=== PATIENT | male | born 1955 | race Caucasian/White ===

== ENCOUNTER 2016-12-30 11:56 | Inpatient (IN) | payer MEDICAID ==
[~2016-12-30] VITALS: Ht 170.2 cm; Wt 101.6 kg
--- NOTE | 2016-12-30 07:10 | NUR ---
EMANUEL FROM ULTRASOUND DEPARTMENT CAME TO DO ULTRASOUND OF GALLBLADDER TO PT.
[2016-12-30 12:16] VITALS: BP 125/66
[2016-12-30] MEDS ORDERED: MAG SULF 2000 MG/WATER PREMIX 50 ML IV ONE (12:20)
[2016-12-30] MEDS ORDERED: IPRATROPIUM 0.02% 0.5 MG/2.5 ML NEBU INH ONE (12:20)
[2016-12-30] MEDS ORDERED: ALBUTEROL 0.083% 2.5 MG/3 ML NEBU INH ONE (12:20)
--- NOTE | 2016-12-30 12:25 | NUR ---
Patient ambulated to OF with family. Dr. England evaluating patient.
[2016-12-30] MEDS ORDERED: AMLO2.5T PO (12:26)
[2016-12-30] MEDS ORDERED: ALBU0.0912 INH (12:26)
[2016-12-30] MEDS ORDERED: ASPI81CT27 PO (12:26)
[2016-12-30] MEDS ORDERED: FLUO10CA21 PO (12:26)
[2016-12-30] MEDS ORDERED: WARF5PDS PO (12:26)
[2016-12-30] MEDS ORDERED: ATOR40TA PO (12:26)
[2016-12-30] MEDS ORDERED: LISI20TA21 PO (12:26)
[2016-12-30] MEDS ORDERED: METO50TE PO (12:26)
[2016-12-30] MEDS ORDERED: MEDR150S20 INH (12:26)
[2016-12-30] MEDS ORDERED: METF500T64 PO (12:26)
--- NOTE | 2016-12-30 12:28 | NUR ---
ABG obtained by respiratory therapist while in OF.
[2016-12-30 12:34] LABS: BASOPHILS % (AUTO) 0.3 % (0.0-2.0); EOSINOPHILS # (AUTO) 0.2 K/uL (0-0.4); EOSINOPHILS % (AUTO) 1.7 % (0.0-4.0); HEMATOCRIT 48.1 % (36-52); HEMOGLOBIN 15.4 g/dL (12.0-18.0); LYMPHOCYTES # (AUTO) 0.7 K/uL (2.0-11.5); LYMPHOCYTES % (AUTO) 5.1 % (20.5-51.1); MEAN CORPUSCULAR HEMOGLOBIN 31 pg (27-31); MEAN CORPUSCULAR HGB CONC 32 g/dL (33-37); MEAN CORPUSCULAR VOLUME 96 fL (80-94); MONOCYTES # (AUTO) 0.9 K/uL (0.8-1.0); MONOCYTES % (AUTO) 6.4 % (1.7-9.3); NEUTROPHILS # (AUTO) 11.9 K/uL (1.8-7.7); NEUTROPHILS % (AUTO) 86.5 % (42.2-75.2); PLATELET COUNT (AUTO) 176 K/uL (140-450); RED BLOOD CELL COUNT(AUTO) 4.99 MIL/uL (4.20-6.10); RED CELL DISTRIBUTION WIDTH 14.5 % (11.6-13.7)
--- NOTE | 2016-12-30 12:40 | NUR ---
61M BIB FAMILY C/O NON-PRODUCTIVE COUGH W/ SHORTNESS OF BREATH X 2 DAYS; PT NOTED W/ TACHYPNEA, BL INSPIRATORY/EXPIRATORY WHEEZES & SHALLOW BREATHING AT THIS TIME; PT REFERRED TO ER FROM URGENT CARE FOR EVALUATION OF COUGH; PT STATES HE WAS DX W/PNEUMONIA AT URGENT CARE. HX COPD, DM, HTN, HYPERLIPIDEMIA, S/P CORONARY BYPASS 2005; PT AA&OX4, PERRLA, SKIN IS WARM/DRY/INTACT AT THIS TIME; PT STATES NO PAIN, N/V/D AT THIS TIME; PT PLACED ON MONITOR, RESTING IN BED W/ HOB ELEVATED AND IN LOWEST POSITION; POSITIONED FOR COMFORT; ER MD MADE AWARE OF STATUS. WILL CONTINUE TO MONITOR.
[2016-12-30 12:43] LABS: ANION GAP 14.5 (8-16); CALCIUM 9.3 mg/dL (8.5-10.1); CARBON DIOXIDE 27.8 mmol/L (21-32); CREATININE 1.3 mg/dL (0.6-1.3); POTASSIUM 4.3 mmol/L (3.5-5.1)
[2016-12-30 12:45] LABS: WHITE BLOOD COUNT (AUTO) 13.7 K/uL (4.8-10.8)
[2016-12-30 12:45] LABS: BLOOD GAS BASE EXCESS 1.1 mmol/L (-2.0-2.0); BLOOD GAS HCO3 24.3 mmol/L; BLOOD GAS PCO2 34.7 mmHg (20-50); BLOOD GAS PH 7.463 (7.35-7.45); BLOOD GAS PO2 45.7 mmHg
[2016-12-30 12:46] LABS: INR 2.3 (0.8-1.2); PROTHROMBIN TIME 23.3 secs (10.8-13.4)
[2016-12-30 12:46] LABS: BLOOD GAS O2 SAT% 82.7 % (92.0-98.5)
--- NOTE | 2016-12-30 12:47 | NUR ---
ABG RESULTS GIVEN TO .
[2016-12-30 12:49] LABS: ALBUMIN 3.9 g/dL (3.4-5.0); TOTAL BILIRUBIN 1.9 mg/dL (0.0-1.0); TOTAL PROTEIN, SERUM 8.4 g/dL (6.4-8.2)
--- NOTE | 2016-12-30 12:52 | NUR ---
RT AT BEDSIDE.
[2016-12-30] MEDS ORDERED: IBUPROFEN 600 MG TAB ONE (13:03)
--- NOTE | 2016-12-30 13:10 | NUR ---
XRAY AT BEDSIDE.
--- NOTE | 2016-12-30 14:07 | NUR ---
SPOKE W/ SURAJ JACQUES TO GIVE REPORT; STATES IN A PT'S ROOM; WILL CALL BACK IN 5-10 MINUTES.
[2016-12-30] MEDS ORDERED: ALBUTEROL SULFATE/IPRATROPIU 3 ML SOL IH PRN (14:10)
[2016-12-30] MEDS ORDERED: HYDROcodone/APAP 5/325 MG 1 TAB TAB PO PRN (14:10)
[2016-12-30] MEDS ORDERED: ONDANSETRON 4 MG/2 ML VIAL IVP PRN (14:10)
--- NOTE | 2016-12-30 14:23 | NUR ---
REPORT GIVEN TO SAWYER RUELAS.
--- NOTE | 2016-12-30 14:23 | NUR ---
RECEIVED REPORT FROM BOX TENDERSAWYER MAJOR.
--- NOTE | 2016-12-30 14:35 | NUR ---
Patient will be admitted to care of . Admited to TELEMETRY. Will go to room 110A. Belongings list completed. Report to SAWYER RUELAS.
--- NOTE | 2016-12-30 14:35 | NUR ---
Note criss in EDM - 12/30/16 at 1447 by LAMIN APatient will be admitted to care of . Admited to TELEMETRY. Will go to room 110A. Belongings list completed. Report to SAWYER RUELAS.
[2016-12-30 14:45] VITALS: BP 90/63
--- NOTE | 2016-12-30 14:45 | NUR ---
RECEIVED PT FROM ER. AWAKE, ALERT ORIENTEDX4. PT ON 02 AT 2LPM. DENIES ANY PAIN OR DISCOMFORT AT HIS TIME. POSITIVE BOWEL SOUNDS NOTED ON FOUR QUADR[address] CT WITH DAUGHTER IZZY. PT AMBULATORY. DENIES ANY PROBLEM WITH BLADDER OR BOWEL ELIMINATION AT THIS TIME. POSITIONED TO BED PER PT COMFORT. SAFETY PRECAUTION IN PLACE. CALL LIGHT WITHIN REACH. VITAL SIGNS. TAKEN AND RECORDED. PT ON STABLE CONDITION. SO SIGNS AND SYMPTOMS OF ACUTE DISTRESS NOTED AT THIS TIME.
--- NOTE | 2016-12-30 15:00 | NUR ---
EMANUEL FROM ULTRASOUND DEPARTMENT CALLED FOR THE GALL BLADDER ULTRASOUND ORDER AND KEPT PT ON NPO FOR AT LEAST 6 HRS. DAUGHTER IZZY VERBALIZED FATHER HAD LAST ATE BEFORE 0800. HELD DUE MEDS FOR NOW AWAITING EMANUEL FOR THE PROCEDURE.
[2016-12-30] MEDS: ALBUTEROL SULFATE/IPRATROPIU 3 ML SOL IH SCH ×3 (15:04→23:35)
--- NOTE | 2016-12-30 15:06 | NUR ---
PT ON 2 L NC SPO2 94%. HHN TX GIVEN. NO SOB OR DISTRESS NOTED. WILL CONTINUE TO MONITOR.
--- NOTE | 2016-12-30 15:10 | NUR ---
DR. GRAY CAME TO SEE PT.
[2016-12-30] MEDS ORDERED: methylPREDNISolone SS 125 MG/2 ML VIAL IVP SCH (15:45)
[2016-12-30 16:00] VITALS: BP 100/61
[2016-12-30] MEDS: BLOOD GLUCOSE MONITORING 1 DEV DEV FS SCH ×2 (16:35→20:55)
[2016-12-30] MEDS: PIPER/TAZO 3.375GM/D5W PREMIX 50 ML IV SCH ×2 (16:40→20:55)
[2016-12-30] MEDS ORDERED: WARFARIN 2.5 MG TAB PO SCH (17:00)
[2016-12-30 18:19] LABS: APPEARANCE,URINE CLEAR (CLEAR); BILIRUBIN,URINE NEGATIVE (NEGATIVE); BLOOD, URINE NEGATIVE (NEGATIVE); COLOR,URINE YELLOW (YELLOW); LEUKOCYTE ESTERASE ,URINE NEGATIVE (NEGATIVE); NITRITE, URINE NEGATIVE (NEGATIVE); PROTEIN,URINE 1+ (NEGATIVE); UGLUCOSE NEGATIVE (NEGATIVE); UROBILINOGEN,URINE 0.2 EU/dL (0.2 - 1)
[2016-12-30 18:27] LABS: AMPHETAMINE, URINE NEG. ng/ml (NEG <=1000); BARBITURATE, URINE NEG. ng/ml (NEG <=200); BENZODIAZEPINE, URINE NEG. ng/mL (NEG <=200); CANNABINOID, URINE NEG. ng/mL (NEG <=50); COCAINE, URINE NEG. ng/mL (NEG <=300); OPIATE, URINE NEG. ng/mL (NEG <=2000); PHENCYCLIDINE SCREEN,URINE NEG. ng/mL (NEG <=25)
[2016-12-30 18:30] LABS: BACTERIA,URINE RARE /HPF (None Seen); MUCUS,URINE 3+ /LPF (None Seen); RBC,URINE 0-3 /HPF (0-5); SQUAMOUS EPITHELIAL CELL,UR 0-3 /LPF (0-3 (FEW)); URINE AMORPHOUS URATE 1+ /HPF (None Seen); WBC,URINE 0-3 /HPF (0-5)
--- NOTE | 2016-12-30 19:20 | NUR ---
EMANUEL STILL WITH PT FOR ULTRASOUND. DUE COUMADIN AT 1700 AND INSULIN COVERAGE NOT YET GIVEN DUE TO EMANUEL NOT YET DONE WITH ULTRASOUND. DINNER TRAY AT BEDSIDE.
--- NOTE | 2016-12-30 19:30 | NUR ---
RECEIVED REPORT FROM SURAJ JACQUES AT BEDSIDE. PT IS ALERT, AWAKE ORIENTED X4. INITIAL ASSESSMENT DONE. NO S/S OF RESPIRATORY DISTRESS OR SOB NOTED. NO C/O PAIN OR ANY DISCOMFORT AT THIS TIME. PLAN OF CARE REVIEWED TO PT AND FAMILY AT BEDSIDE AND VERBALIZED UNDERSTANDING. CALL LIGHT WITHIN REACH. WILL CONTINUE TO MONITOR.
[2016-12-30] MEDS: INSULIN LISPRO SLIDING SCALE 100 UNITS/ML VIAL SUBQ PRN ×2 (19:36→20:56)
--- NOTE | 2016-12-30 19:37 | NUR ---
ULTRASOUND STAFF FINISHED WITH ULTRASOUND FOR PT. DUE COUMADIN AND COVERAGE HUMOLOG WAS GIVEN TO PT. PT EATING NOW HIS DINNER. TOLERATED WELL. PT KEPT CLEAN, DRY AND COMFORTABLE, NEEDS ATTENDED. ENDORSED TO SINGLE SPINDLE SCREW MACHINE OPERATOR ON STABLE CONDITION FOR CONTINUITY OF CARE. NO SOB. DENIES ANY PAIN OR DISCOMFORT AT THIS TIME.
[2016-12-30 20:00] VITALS: BP 97/52
[2016-12-30] MEDS ORDERED: BECLOMETHASONE DIPROPIONATE INH SCH (21:00)
[2016-12-30] MEDS ORDERED: PIPERACILLIN/TAZOBACTAM 3.375 GM in DEXTROSE 5% 50 ML IV SCH (21:00)
--- NOTE | 2016-12-30 22:20 | NUR ---
CALLED DAVID HERNANDEZ AND NOTIFIED CRITICAL LAB RESULT TROPONIN = 0.159 AND NEW ORDERS WERE GIVEN (PLS. SEE CPOE). NEW ORDERS NOTED AND CARRIED OUT. SHE'S ALLOWING ME TO ENTER THE ORDER TO THE COMPUTER. WILL CONTINUE TO MONITOR.
[2016-12-31] VITALS: BP 101/54
--- NOTE | 2016-12-31 00:30 | NUR ---
PT IS SLEEPING RIGHT NOW BUT EASILY AROUSABLE. NO S/S OF ANY DISCOMFORT AT THIS TIME. ALL NEEDS ARE ATTENDED. CALL LIGHT WITHIN REACH. WILL CONTINUE TO MONITOR.
[2016-12-31] MEDS: methylPREDNISolone SS 125 MG/2 ML VIAL IVP SCH ×3 (00:35→16:25)
[2016-12-31] MEDS: ALBUTEROL SULFATE/IPRATROPIU 3 ML SOL IH SCH ×6 (03:30→23:44)
[2016-12-31 04:00] VITALS: BP 110/72
[2016-12-31] MEDS: PIPER/TAZO 3.375GM/D5W PREMIX 50 ML IV SCH ×3 (04:38→21:53)
[2016-12-31 06:07] LABS: HEMATOCRIT 46.3 % (36-52); HEMOGLOBIN 14.9 g/dL (12.0-18.0); MEAN CORPUSCULAR HEMOGLOBIN 31 pg (27-31); MEAN CORPUSCULAR HGB CONC 32 g/dL (33-37); MEAN CORPUSCULAR VOLUME 96 fL (80-94); PLATELET COUNT (AUTO) 154 K/uL (140-450); RED BLOOD CELL COUNT(AUTO) 4.84 MIL/uL (4.20-6.10); RED CELL DISTRIBUTION WIDTH 14.6 % (11.6-13.7); WHITE BLOOD COUNT (AUTO) 16.1 K/uL (4.8-10.8)
[2016-12-31 06:32] LABS: PROTHROMBIN TIME 20.1 secs (10.8-13.4)
[2016-12-31 06:33] LABS: ANION GAP 14.1 (8-16); CALCIUM 9.1 mg/dL (8.5-10.1); CREATININE 1.6 mg/dL (0.6-1.3); POTASSIUM 4.1 mmol/L (3.5-5.1)
[2016-12-31] MEDS: BLOOD GLUCOSE MONITORING 1 DEV DEV FS SCH ×4 (06:37→21:00)
[2016-12-31 06:46] LABS: MAGNESIUM 2.8 mg/dL (1.8-2.4); PHOSPHORUS 3.8 mg/dL (2.5-4.9)
[2016-12-31] MEDS: INSULIN LISPRO SLIDING SCALE 100 UNITS/ML VIAL SUBQ PRN ×4 (06:51→22:01)
[2016-12-31 07:05] LABS: BAND % (MANUAL) 12 % (0-8); LYMPHOCYTES % (MANUAL) 4 % (20-46); MONOCYTES % (MANUAL) 3 % (5-12); NEUTROPHILS % (MANUAL) 81 (43-65)
--- NOTE | 2016-12-31 07:17 | NUR ---
AWAKE AND ALERT RESPONSIVE TO PAPER BAG INSPECTOR VERBAL COMMANDS POST HHN THERAPY ADDED HUMIDIFIER FOR NASAL DRYNESS
--- NOTE | 2016-12-31 07:20 | NUR ---
PT HAS NO S/S OF ANY DISCOMFORT. PLAN OF CARE ENDORSE TO SURAJ JACQUES AT BEDSIDE FOR CONTINUITY OF CARE.
--- NOTE | 2016-12-31 07:30 | NUR ---
RECEIVED PT IN BED AWAKE, ALERT ORIENTEDX4. WATCHING TV. SEATED UPRIGHT IN BED. ON 02 AT 2LPM. NO SOB, DENIES ANY PAIN OR DISCOMFORT AT THIS TIME. PT AMBULATORY. AMBULATING TO THE BATHROOM WITH STEADY GAIT. POSITIVE BOWEL SOUNDS NOTED ON FOUR QUADRANTS. SAFETY PRECAUTION IN PLACE. CALL LIGHT WITHIN REACH.
[2016-12-31 08:00] VITALS: BP 87/57
[2016-12-31] MEDS: METOPROLOL SUCCINATE 50 MG TABER PO SCH (08:32)
[2016-12-31] MEDS: LISINOPRIL 20 MG TAB PO SCH (08:32)
[2016-12-31] MEDS: amLODIPine 5 MG TAB PO SCH (08:32)
[2016-12-31] MEDS: ATORVASTATIN 20 MG TAB PO SCH (08:34)
[2016-12-31] MEDS: ECOTRIN 81 MG TABEC PO SCH (08:35)
[2016-12-31] MEDS ORDERED: CLINICAL MONITORING MC PRN (08:35)
[2016-12-31] MEDS: FLUoxetine 10 MG CAP PO SCH (08:35)
[2016-12-31] MEDS ORDERED: WARFARIN SODIUM 1 MG PO SCH (09:00)
[2016-12-31] MEDS ORDERED: metFORMIN 500 MG TAB PO SCH (09:00)
[2016-12-31] MEDS ORDERED: ASPIRIN 81 MG TAB.CHEW PO SCH (09:00)
[2016-12-31] MEDS: NACL 0.9% 1,000 ML IV SCH (11:02)
[2016-12-31 12:00] VITALS: BP 89/58
[2016-12-31] MEDS ORDERED: PIPER/TAZO 2.25GM/D5W PREMIX 50 ML IV SCH (12:00)
--- NOTE | 2016-12-31 14:20 | NUR ---
@1400 HRS, JOSE VELAZQUEZ FROM [facility] CALLED REGARDING PT THE HE FALLS ON SEPSIS CRITERIA AND TO TELL THR DOCTOR JOSE TO GET ORDERS FOR INITIAL LACTIC ACID LEVEL AND TO GIVE NS BOLUS OF 3000 MLS IN THE NEXT [address]. [address] PHIPPS REGARDING THE CALL, REVIEWED THE CHART AND PT IS ON SOLUMEDROL AND AFEBRILE. DR. PHIPPS STATED PT IS NOT SEPTIC AND SHE WILL DOCUMENT IT ON PT'S CHART. FAMILY SPECIALIST JASON MADE AWARE.
--- NOTE | 2016-12-31 15:02 | NUR ---
PT AMBULATED GOING TO THE BATHROOM INDEPENDENTLY. NO SIGNS OF WEAKNESS NOTED. NO SOB NOTED. DENIES ANY PAIN OR DISCOMFORT AT THIS TIME.
[2016-12-31 16:00] VITALS: BP 107/46
[2016-12-31] MEDS: metFORMIN 500 MG TAB PO SCH (16:25)
[2016-12-31] MEDS ORDERED: WARFARIN 5 MG TAB PO SCH (17:00)
--- NOTE | 2016-12-31 19:31 | NUR ---
PT KEPT, CLEAN, DRY AND COMFORTABLE, NEEDS ATTENDED. NO SOB NOTED, ON 02 AT 2LPM VIA NC. DENIES ANY PAIN OR DISCOMFORT AT THIS TIME. ENDORSED TO NEXT SHIFT FOR CONTINUITY OF CARE. PT ON STABLE CONDITION.
[2016-12-31 20:00] VITALS: BP 108/65
--- NOTE | 2016-12-31 20:00 | NUR ---
PT AWAKE ALERT AND ORIENTED, JUST HAVING HIS HHN TREATMENT, NO DISTRESS NOTED.
--- NOTE | 2016-12-31 22:00 | NUR ---
PT RESTING, NO COMPLAINTS
[2017-01-01] VITALS: BP 131/72
--- NOTE | 2017-01-01 | NUR ---
RESTING NO SIGNS OF DISTRESS.
--- NOTE | 2017-01-01 | NUR ---
AWAKE V/S DONE,NO DISTRESS NO COMPLAINTS. INSTRUCTED TO CALL IF NEEDED HELP.
[2017-01-01] MEDS: methylPREDNISolone SS 40 MG/ML VIAL IVP SCH ×3 (00:07→15:39)
[2017-01-01] MEDS: ALBUTEROL SULFATE/IPRATROPIU 3 ML SOL IH SCH ×6 (03:18→23:30)
[2017-01-01 04:00] VITALS: BP 116/60
[2017-01-01] MEDS: NACL 0.9% 1,000 ML IV SCH ×2 (04:46→17:43)
[2017-01-01] MEDS: PIPER/TAZO 3.375GM/D5W PREMIX 50 ML IV SCH ×3 (04:47→20:45)
[2017-01-01 05:53] LABS: HEMATOCRIT 46.2 % (36-52); HEMOGLOBIN 14.6 g/dL (12.0-18.0); MEAN CORPUSCULAR HEMOGLOBIN 30 pg (27-31); MEAN CORPUSCULAR HGB CONC 32 g/dL (33-37); MEAN CORPUSCULAR VOLUME 96 fL (80-94); PLATELET COUNT (AUTO) 182 K/uL (140-450); RED BLOOD CELL COUNT(AUTO) 4.81 MIL/uL (4.20-6.10); RED CELL DISTRIBUTION WIDTH 14.7 % (11.6-13.7); WHITE BLOOD COUNT (AUTO) 20.4 K/uL (4.8-10.8)
[2017-01-01] MEDS: BLOOD GLUCOSE MONITORING 1 DEV DEV FS SCH ×4 (06:16→20:45)
[2017-01-01] MEDS: INSULIN LISPRO SLIDING SCALE 100 UNITS/ML VIAL SUBQ PRN ×4 (06:21→20:42)
--- NOTE | 2017-01-01 06:30 | NUR ---
BS 274 INSULIN GIVEN.
[2017-01-01 06:36] LABS: ANION GAP 15.8 (8-16); CARBON DIOXIDE 25.1 mmol/L (21-32); CREATININE 1.5 mg/dL (0.6-1.3); POTASSIUM 3.9 mmol/L (3.5-5.1)
[2017-01-01 06:48] LABS: INR 4.4 (0.8-1.2); PROTHROMBIN TIME 44.2 secs (10.8-13.4)
[2017-01-01 06:51] LABS: MAGNESIUM 2.5 mg/dL (1.8-2.4); PHOSPHORUS 3.9 mg/dL (2.5-4.9)
[2017-01-01 07:06] LABS: BAND % (MANUAL) 13 % (0-8); LYMPHOCYTES % (MANUAL) 2 % (20-46); MONOCYTES % (MANUAL) 5 % (5-12); NEUTROPHILS % (MANUAL) 80 (43-65)
[2017-01-01 07:15] LABS: BLOOD GAS PH 7.404 (7.35-7.45); BLOOD GAS PO2 63.7 mmHg
--- NOTE | 2017-01-01 07:15 | NUR ---
GIVE REPORT TO AM NURSE.
[2017-01-01 07:16] LABS: BLOOD GAS BASE EXCESS -0.2 mmol/L (-2.0-2.0); BLOOD GAS HCO3 24.4 mmol/L; BLOOD GAS O2 SAT% 91.3 % (92.0-98.5)
--- NOTE | 2017-01-01 07:22 | NUR ---
REPORT RECIEVED FROM VALANCE CUTTER, PT AAOX4, RESP EVEN UNLABORED ON 3L NC IN NAD, IVF INFUSING WELL AT 50ML/HR, SITE CLEAR, PLAN OF CARE DISCUSSED, PT DENIES PAIN OR DISCOMFORT, DENIES ANY IMMEDIATE NEEDS, BED LOCKED IN LOW POSITION, SIDE RAILS UP, CALL MCGHEE WTIHIN REACH, WILL CONTINUE TO MONITOR.
--- NOTE | 2017-01-01 07:30 | NUR ---
SUPPLEMENTAL OXYGEN AT 3 LPM VIA NC MIRI/RN IN ROOM AWARE
[2017-01-01 07:59] VITALS: BP 121/63
[2017-01-01] MEDS: LISINOPRIL 20 MG TAB PO SCH (08:10)
[2017-01-01] MEDS: ECOTRIN 81 MG TABEC PO SCH ×2 (08:11→08:17)
[2017-01-01] MEDS: amLODIPine 5 MG TAB PO SCH (08:11)
[2017-01-01] MEDS: FLUoxetine 10 MG CAP PO SCH (08:11)
[2017-01-01] MEDS: ATORVASTATIN 20 MG TAB PO SCH (08:11)
[2017-01-01] MEDS: metFORMIN 500 MG TAB PO SCH ×2 (08:11→16:56)
[2017-01-01] MEDS: METOPROLOL SUCCINATE 50 MG TABER PO SCH (08:11)
--- NOTE | 2017-01-01 08:17 | NUR ---
INR 4.4 THIS AM, ASPIRIN HELD
--- NOTE | 2017-01-01 09:02 | NUR ---
FNS REFERRAL RECEIVED ON 12/30/16-1735 FOR UNSPECIFIED REASON. REFERRAL DOES NOT MEET HIGH RISK CRITERIA PER HOSPITAL POLICY. PATIENT WILL BE SEEN AND ASSESSED ACCORDING TO THE NUTRITION CARE POLICY. PATIENT HAS BEEN SCREENED AND CATEGORIZED MODERATE NUTRITION RISK. PATIENT WILL BE SEEN WITHIN 3-5 DAYS OF ADMISSION. 01/02/17-01/04/[address]
--- NOTE | 2017-01-01 10:30 | NUR ---
PT WALKED AROUND THE FLOOR WITH STEADY GAIT DIRECTED BY MD PER PT, UPON RETURN TO BED PT SLIGHTLY SOB, O2 SAT 85% RA, NC 3L O2 REAPPLIED, WILL CONTINUE TO MONITOR
--- NOTE | 2017-01-01 11:36 | NUR ---
FAXED INITIAL REVIEW TO [facility] [phone] [facility] [phone] FAXED INITIAL REVIEW TO [facility] [phone] RACHEL [phone]
[2017-01-01 12:00] VITALS: BP 100/71
[2017-01-01 16:05] VITALS: BP 108/62
[2017-01-01] MEDS ORDERED: FUROSEMIDE 20 MG/2 ML VIAL IVP SCH (18:00)
--- NOTE | 2017-01-01 19:42 | NUR ---
REPORT GIVEN TO WARES SORTER, PT IN STABLE CONDITION.
--- NOTE | 2017-01-01 19:45 | NUR ---
RECEIVED PT FROM MIRI RN PT IS AAOX4 AMBULATORY 0N 02 3 LTS VIA NC IV ON LEFT ARM INFUSING WELL ON TELMETRY AFIB NOT SOB NOTED AT THIS TIME INITIAL ASSESSMENT DONE
[2017-01-01 20:00] VITALS: BP 115/55
--- NOTE | 2017-01-01 20:30 | NUR ---
DR GRAY REQUEST TO WEAN PT OFF O2 SO PT FIO2 DECREASED TO 2 L/M NC FROM 3 L/M NC. PT SATS 92% AT THIS TIME. EXPLAINED CHANGES TO PT, NO DISTRESS/SOB NOTED AT THIS TIME. Addendum: 01/01/17 at 2133 by Tessie Henry RT KEEP SATS ABOVE AT OR ABOVE 90% PER DR GRAY.
--- NOTE | 2017-01-01 21:00 | NUR ---
BLOOD SUGAR TEST 185 COVERAGE WITH 2 UNITS HUMALOG
--- NOTE | 2017-01-01 21:25 | NUR ---
PT RETURNED TO 3 L/M NC DUE TO SATS DROPPING TO 87-88% ON 2 L/M. SAT 90% ON 3 L/M NC AT THIS TIME. WILL CONTINUE TO MONITOR. SAWYER BOB AWARE OF CHANGES.
[2017-01-02] VITALS: BP 117/79
--- NOTE | 2017-01-02 | NUR ---
PT SLEEPING WELL NOT DISTRESS NOTED ON 08 18 LTS VIA NC O;N TELEMETRY AFIB
--- NOTE | 2017-01-02 02:47 | NUR ---
PT VOIDING WELL ON URINAL , NOT DISTRESS NOTED AT THIS TIME ON TELEMETRY AFIB
[2017-01-02] MEDS: ALBUTEROL SULFATE/IPRATROPIU 3 ML SOL IH SCH ×6 (02:54→23:20)
[2017-01-02 04:00] VITALS: BP 104/67
--- NOTE | 2017-01-02 04:00 | NUR ---
LINEN CHANGED NOT SOB NOTED ON 3 LTS 02 VIA NC ON TELEMETRY AFIB
[2017-01-02] MEDS: PIPER/TAZO 3.375GM/D5W PREMIX 50 ML IV SCH ×2 (05:21→12:40)
[2017-01-02] MEDS: NACL 0.9% 1,000 ML IV SCH (06:35)
[2017-01-02] MEDS: INSULIN LISPRO SLIDING SCALE 100 UNITS/ML VIAL SUBQ PRN ×3 (06:38→21:20)
[2017-01-02] MEDS: BLOOD GLUCOSE MONITORING 1 DEV DEV FS SCH ×4 (06:41→20:43)
--- NOTE | 2017-01-02 06:46 | NUR ---
BLOOD SUGAR TEST 189 COVERAGE WITH 2 UNITS HUMALOG ON RT ARM
[2017-01-02 06:48] LABS: HEMATOCRIT 45.3 % (36-52); HEMOGLOBIN 14.5 g/dL (12.0-18.0); MEAN CORPUSCULAR HEMOGLOBIN 31 pg (27-31); MEAN CORPUSCULAR HGB CONC 32 g/dL (33-37); MEAN CORPUSCULAR VOLUME 96 fL (80-94); PLATELET COUNT (AUTO) 196 K/uL (140-450); RED BLOOD CELL COUNT(AUTO) 4.73 MIL/uL (4.20-6.10); RED CELL DISTRIBUTION WIDTH 14.8 % (11.6-13.7); WHITE BLOOD COUNT (AUTO) 23.8 K/uL (4.8-10.8)
[2017-01-02] MEDS ORDERED: FUROSEMIDE 20 MG/2 ML VIAL IVP ONE (07:25)
[2017-01-02 07:30] LABS: BAND % (MANUAL) 7 % (0-8); LYMPHOCYTES % (MANUAL) 6 % (20-46); MONOCYTES % (MANUAL) 5 % (5-12); NEUTROPHILS % (MANUAL) 82 (43-65)
--- NOTE | 2017-01-02 07:30 | NUR ---
REPORT RECEIVED FROM YARD STOCKER, PT AWAKE RESTING QUIETLY IN BED, RESP EVEN UNLABORED ON 3L NC, PT DENIES SOB, PT DENIES CHEST PAIN OR OTHER DISCOMFORT, RT AT BEDSIDE FOR NEB TREATMENT, SKIN WARM DRY COLOR WNL, IVF INFUSING WELL, SITE CLEAR, PLAN OF CARE REVIEWED, PT REMAINS ON GOLF CART ATTENDANT, CALL MCGHEE WITHIN REACH, SIDE RAILS UP, BED LOCKED IN LOW POSITION, WILL CONTINUE TO MONITOR.
[2017-01-02 07:49] LABS: ANION GAP 12.5 (8-16); CALCIUM 9.3 mg/dL (8.5-10.1); CARBON DIOXIDE 28.5 mmol/L (21-32); CREATININE 1.3 mg/dL (0.6-1.3)
[2017-01-02 07:58] LABS: PARTIAL THROMBOPLASTIN TIME 46.1 secs (22-35.6)
[2017-01-02 07:58] LABS: MAGNESIUM 2.5 mg/dL (1.8-2.4); PHOSPHORUS 2.3 mg/dL (2.5-4.9)
[2017-01-02 08:00] VITALS: BP 123/83
[2017-01-02] MEDS: LISINOPRIL 20 MG TAB PO SCH (08:14)
[2017-01-02] MEDS: ATORVASTATIN 20 MG TAB PO SCH (08:14)
[2017-01-02] MEDS: metFORMIN 500 MG TAB PO SCH ×2 (08:14→17:18)
[2017-01-02] MEDS: FUROSEMIDE 40 MG/4 ML VIAL IVP SCH ×2 (08:14→17:18)
[2017-01-02] MEDS: amLODIPine 5 MG TAB PO SCH (08:15)
[2017-01-02] MEDS: METOPROLOL SUCCINATE 50 MG TABER PO SCH (08:15)
[2017-01-02] MEDS: FLUoxetine 10 MG CAP PO SCH (08:15)
--- NOTE | 2017-01-02 08:15 | NUR ---
O2 SAT 88-89 ON 4L NC O2, PT DENIES SOB AT REST, DENIES CHEST PAIN, RESP EVEN UNLABORED, BS DIMINISHED BUT CLEAR, MADE AWARE, DR ROBLERO AND TEAM ROUNDING AT BEDSIDE.
[2017-01-02] MEDS: ECOTRIN 81 MG TABEC PO SCH (08:21)
[2017-01-02] MEDS ORDERED: FUROSEMIDE 20 MG TAB PO SCH (09:00)
[2017-01-02 09:48] LABS: PROTHROMBIN TIME 42.9 secs (10.8-13.4)
[2017-01-02 09:49] LABS: INR 4.3 (0.8-1.2)
--- NOTE | 2017-01-02 10:30 | NUR ---
PT UP OUT OF BED WITHOUT PROBLEM AMBULATES WITH STEADY GAIT TO BATHROOM, REPORTS SLIGHT SOB WITH AMBULATION, CALL MCGHEE WITHIN REACH, SIDE RAILS UP, BED LOCKED IN LOW POSITION, WILL CONTINUE TO MONITOR.
--- NOTE | 2017-01-02 11:20 | NUR ---
REPORT GIVEN TO RUTHY JACQUES, PT IN STABLE CONDITION.
--- NOTE | 2017-01-02 11:30 | NUR ---
RECEIVED REPORT FROM MIRI RN FOR CONTINUITY OF CARE. PATIENT AWAKE SITTING UP ON THE CHAIR, SOB NOTED INCREASE THE O2 3L/NC . DENIES ANY PAIN CHECKED BLOOD SUGAR 189 SLIDING SCALE COVERAGE 20 UNITS HOMOLOG GIVEN.
[2017-01-02 12:00] VITALS: BP 129/89
--- NOTE | 2017-01-02 12:00 | NUR ---
PATIENT RUN V-TACH FOR A FEW SECONDS , DENIES ANY CHEST PAIN NOTIFIED MD WILL CONTINUE TO MONITOR.
--- NOTE | 2017-01-02 12:53 | NUR ---
FAXED CONCURRENT REVIEW TO [facility] [phone] PHONE RACHEL [phone] SPOKE WITH RACHEL AT [facility] AND INFORMED HER OF ORDER FOR HHN FOR HOME.
--- NOTE | 2017-01-02 13:20 | NUR ---
DR GRAY VISITED PATIENT NEW ORDER CARRIED OUT.
--- NOTE | 2017-01-02 15:16 | NUR ---
INCREASED FIO2 TO 4L N\C WITH H20 POST HHN PT HAS O2 EXT. IN PLACE
[2017-01-02 16:00] VITALS: BP 111/63
--- NOTE | 2017-01-02 16:25 | NUR ---
LAB CALLED ME REGARDING HIGH TROP , NOTIFIED DR LOUIS (RESIDENT ) NO NEW ORDERS BIOPROCESSING MANUFACTURING TECHNICIAN TO SEE PT. WILL CONTINUE TO MONITOR
[2017-01-02] MEDS: CLINDAMYCIN 600 MG in DEXTROSE 5% 50 ML IV SCH (18:32)
[2017-01-02] MEDS: BUDESONIDE 0.5 MG/2 ML NEBU INH SCH (19:06)
--- NOTE | 2017-01-02 19:11 | NUR ---
DR TUTTLE VISITED PATIENT , SOB NOTED BREATHING TX GIVEN SAFETY MAINTAINED ENDORSE THE CARE TO SCHOOL EXAMINER
--- NOTE | 2017-01-02 19:30 | NUR ---
RECEIVED REPORT FROM AM NURSE. PT'S DAUGHTER AT BEDSIDE. PT SITTING AT BEDSIDE, AOX4, ABLE TO VERBALIZE NEEDS. PT DENIES CHEST PAIN OR S/S OF ACUTE DISTRESS. PT C/O SLIGHT SOB. SPO2 86% AT 5L O2 NC. PT INSTRUCTED TO TAKE DEEP BREATHS THROUGH NOSE. WILL CALL RT. CLERK IN PLACE. IV ACCESS ASYMPTOMATIC, PATENT AND INTACT. IVPB INFUSING WELL. DISCUSSED AND REVIEWED PLAN OF CARE WITH PT AND PT'S DAUGHTER. PT VERBALIZED UNDERSTANDING. SAFETY MEASURES ENSURED. CALL LIGHT WITHIN REACH. WILL CONTINUE TO MONITOR.
[2017-01-02 20:00] VITALS: BP 108/53
--- NOTE | 2017-01-02 20:10 | NUR ---
CALLED RT, DISCUSSED THAT PT O2 SAT IS AROUND 85-88% AT 5L O2 NC. RT STATED THAT PT HAS JUST RECEIVED BREATHING TREATMENT, AND HIS O2 SAT WAS 92%. WILL MONITOR PT
[2017-01-02] MEDS: methylPREDNISolone SS 40 MG/ML VIAL IVP SCH (20:43)
--- NOTE | 2017-01-02 20:44 | NUR ---
ADMINISTERED DUE MEDICATION WITH EDUCATION. PT VERBALIZED UNDERSTANDING. BLOOD SUGAR 206, WILL ADMINISTER INSULIN COVERAGE. SAFETY MEASURES ENSURED. CALL LIGHT WITHIN REACH.
--- NOTE | 2017-01-02 21:30 | NUR ---
PT AND BELONGINGS MOVED TO BED 113. CONDITION STABLE. PT TOLERATED WELL. ISOLATION PRECAUTIONS MAINTAINED. SAFETY MEASURES ENSURED. CALL LIGHT WITHIN REACH.
--- NOTE | 2017-01-02 23:20 | NUR ---
PT O2 SAT 85%, RR 28. VS NOTED. RT IN TO ADMINISTER BREATHING TREATMENT. SAFETY MEASURES ENSURED. WILL MONITOR PT.
[2017-01-03] VITALS (8 sets, daily range): BP systolic 84–109; BP diastolic 50–70
[2017-01-03] MEDS: CLINDAMYCIN 600 MG in DEXTROSE 5% 50 ML IV SCH ×4 (00:22→17:21)
--- NOTE | 2017-01-03 00:30 | NUR ---
PT SLEEPING COMFORTABLY. SPO2 90% AT 6L O2 NC, RR 28. ALL NEEDS MET. SAFETY MEASURES ENSURED.
[2017-01-03] MEDS: ALBUTEROL SULFATE/IPRATROPIU 3 ML SOL IH SCH ×6 (03:41→23:23)
--- NOTE | 2017-01-03 03:49 | NUR ---
PT RESTING COMFORTABLY. VS NOTED. SPO2 92%, RR 30. PT DENIES CHEST PAIN, SOB OR S/S OF ACUTE DISTRESS. PT STATED "I FEEL GREAT THIS MORNING." ALL NEEDS MET. SAFETY MEASURES ENSURED. CALL LIGHT WITHIN REACH.
[2017-01-03] MEDS: NACL 0.9% 1,000 ML IV SCH (05:50)
--- NOTE | 2017-01-03 06:12 | NUR ---
NOTIFIED BY SUBSTANCE ABUSE SERVICES DIRECTOR THAT PT JUST HAD A RUN OF V-TACH. CHECKED ON PT, PT RESTING COMFORTABLY. PT DENIES S/S OF ACUTE DISTRESS. WILL CONTINUE TO MONITOR.
[2017-01-03] MEDS: BLOOD GLUCOSE MONITORING 1 DEV DEV FS SCH ×4 (06:40→21:07)
[2017-01-03 06:42] LABS: HEMOGLOBIN 14.7 g/dL (12.0-18.0); MEAN CORPUSCULAR HEMOGLOBIN 31 pg (27-31); MEAN CORPUSCULAR HGB CONC 32 g/dL (33-37); MEAN CORPUSCULAR VOLUME 96 fL (80-94); PLATELET COUNT (AUTO) 177 K/uL (140-450); RED BLOOD CELL COUNT(AUTO) 4.78 MIL/uL (4.20-6.10); RED CELL DISTRIBUTION WIDTH 15.1 % (11.6-13.7)
[2017-01-03] MEDS: BUDESONIDE 0.5 MG/2 ML NEBU INH SCH ×2 (06:42→19:50)
[2017-01-03] MEDS: INSULIN LISPRO SLIDING SCALE 100 UNITS/ML VIAL SUBQ PRN ×4 (06:43→21:07)
[2017-01-03 06:49] LABS: ANION GAP 11.6 (8-16); CARBON DIOXIDE 31.8 mmol/L (21-32); CREATININE 1.1 mg/dL (0.6-1.3); POTASSIUM 4.4 mmol/L (3.5-5.1)
--- NOTE | 2017-01-03 06:49 | NUR ---
DECREASE FIO2 TO 4L N\C POST HHN SPO2 93 Addendum: 01/03/17 at 0650 by Anne Crouch RT PT HAS O2 EXTENSION WITH H20
[2017-01-03 06:54] LABS: MAGNESIUM 2.5 mg/dL (1.8-2.4); PHOSPHORUS 3.9 mg/dL (2.5-4.9)
--- NOTE | 2017-01-03 07:18 | NUR ---
ENDORSED PLAN OF CARE TO AM NURSE. CONDITION STABLE.
--- NOTE | 2017-01-03 07:20 | NUR ---
RECEIVED PATIENT FROM PM NURSE, PATIENT ALERT AND ORIENTED X 4, DENIES ANY PAIN, AMBULATING TO THE BATHROOM.
[2017-01-03 07:30] LABS: INR 3.4 (0.8-1.2); PROTHROMBIN TIME 33.9 secs (10.8-13.4)
[2017-01-03 07:33] LABS: PARTIAL THROMBOPLASTIN TIME 52.3 secs (22-35.6)
[2017-01-03 07:43] LABS: BAND % (MANUAL) 4 % (0-8); LYMPHOCYTES % (MANUAL) 5 % (20-46); MONOCYTES % (MANUAL) 4 % (5-12); NEUTROPHILS % (MANUAL) 87 (43-65); PLATELET ESTIMATE ADEQUATE
[2017-01-03] MEDS ORDERED: methylPREDNISolone SS 40 MG/ML VIAL IVP SCH (08:00)
--- NOTE | 2017-01-03 08:36 | NUR ---
Dr. Neelima zapata notified patient BP this morning 84/59 (sitting), repeat 89/50 (sitting), then lying 93/52, MD said ok to hold bp meds for this morning dose including lasix. Also notified PTT today 52.3, no additional order receive.
[2017-01-03] MEDS: FUROSEMIDE 40 MG/4 ML VIAL IVP SCH ×2 (09:00→17:20)
[2017-01-03] MEDS: METOPROLOL SUCCINATE 50 MG TABER PO SCH (09:00)
[2017-01-03] MEDS: LISINOPRIL 20 MG TAB PO SCH (09:00)
[2017-01-03] MEDS: amLODIPine 5 MG TAB PO SCH (09:00)
[2017-01-03] MEDS: ECOTRIN 81 MG TABEC PO SCH (09:06)
[2017-01-03] MEDS: metFORMIN 500 MG TAB PO SCH ×2 (09:06→17:21)
[2017-01-03] MEDS: FLUoxetine 10 MG CAP PO SCH (09:06)
[2017-01-03] MEDS: ATORVASTATIN 20 MG TAB PO SCH (09:06)
[2017-01-03] MEDS: methylPREDNISolone SS 40 MG/ML VIAL IVP SCH ×2 (09:06→20:19)
[2017-01-03] MEDS: LEVOFLOXACIN 750 MG/D5W PREMIX 150 ML IV SCH (09:07)
--- NOTE | 2017-01-03 12:00 | NUR ---
Patient states his doing better, sitting in the chair, denies any pain
[2017-01-03] MEDS ORDERED: LEVOFLOXACIN 750 MG TAB PO SCH (13:00)
--- NOTE | 2017-01-03 19:10 | NUR ---
SBAR report given to night warehouse manager rn.
--- NOTE | 2017-01-03 19:30 | NUR ---
RECEIVED REPORT FROM AM NURSE. PT SITTING AT BEDSIDE, AOX4, ABLE TO VERBALIZE NEEDS. PT DENIES CHEST PAIN OR S/S OF ACUTE DISTRESS. PT C/O SLIGHT SOB, STATING THAT IT IS IMPROVING. SPO2 89% AT 3.5L O2 NC. INTERMITTENT COUGHS NOTED. METAL CONTROL COORDINATOR IN PLACE. IV ACCESS ASYMPTOMATIC, PATENT AND INTACT. IV TKO DISCUSSED AND REVIEWED PLAN OF CARE WITH PT. PT VERBALIZED UNDERSTANDING. PT INSTRUCTED TO RESTRICT FLUID 1.5L PER DAY. ISOLATION PRECAUTIONS AND SAFETY MEASURES ENSURED. CALL LIGHT WITHIN REACH. WILL CONTINUE TO MONITOR.
--- NOTE | 2017-01-03 20:18 | NUR ---
VS NOTED. DUE MEDICATION ADMINISTERED WITH EDUCATION. PT VERBALIZED UNDERSTANDING. PT TOLERATED WELL. ALL NEEDS MET. SAFETY MEASURES ENSURED. CALL LIGHT WITHIN REACH.
--- NOTE | 2017-01-03 21:07 | NUR ---
BLOOD SUGAR 272, INSULIN COVERAGE ADMINISTERED WITH EDUCATION. PT TOLERATED WELL.
--- NOTE | 2017-01-03 22:15 | NUR ---
PT EVALUATED BY DR DOBSON. DISCUSSED PT CONDITION AND PLAN OF CARE. NEW ORDERS ACKNOWLEDGED AND WILL CARRY OUT.
--- NOTE | 2017-01-03 22:20 | NUR ---
MADE DR DOBSON AWARE THAT THE ORDERED TB GOLD TEST CANNOT BE DRAWN UNTIL 6PM TOMORROW DUE TO THE TEST BEING TIME SENSITIVE AND THAT THE FORK LIFT TRUCK OPERATOR WILL COME BY TO PICK IT UP TO SEND TO [facility] AT [address] TOM[address]ROW[address] DOBSON STATED IT IS OK.
--- NOTE | 2017-01-03 22:30 | NUR ---
EXPLAINED THE NEED FOR 3X SPUTUM SAMPLES THAT ARE Q8H APART. PT VERBALIZED UNDERSTANDING. PT ABLE TO COLLECT SPUTUM SAMPLE AT THIS TIME. WILL SENT TO LAB. PT INSTRUCTED TO COLLECT NEXT SPUTUM SAMPLE AT 0630 TOMORROW MORNING, PT VERBALIZED UNDERSTANDING. WILL REMIND PT. ALL NEEDS MET. CONDITION STABLE. SAFETY MEASURES ENSURED.
[2017-01-04] VITALS: BP 111/80
--- NOTE | 2017-01-04 01:00 | NUR ---
PT SLEEPING COMFORTABLY. CONDITION STABLE. ALL NEEDS MET. SAFETY MEASURES ENSURED. CALL LIGHT WITHIN REACH. WILL CONTINUE TO MONITOR.
[2017-01-04] MEDS: ALBUTEROL SULFATE/IPRATROPIU 3 ML SOL IH SCH ×6 (03:23→23:13)
[2017-01-04 04:00] VITALS: BP 114/74
--- NOTE | 2017-01-04 04:00 | NUR ---
VS NOTED. PT OBSERVED TO AMBULATE INDEPENDENTLY WITH STEADY GAIT TO RESTROOM. CONDITION STABLE. ALL NEEDS MET. SAFETY MEASURES ENSURED. CALL LIGHT WITHIN REACH. WILL CONTINUE TO MONITOR.
[2017-01-04] MEDS: NACL 0.9% 1,000 ML IV SCH (05:56)
[2017-01-04 06:27] LABS: HEMATOCRIT 46.1 % (36-52); HEMOGLOBIN 14.4 g/dL (12.0-18.0); MEAN CORPUSCULAR HEMOGLOBIN 30 pg (27-31); MEAN CORPUSCULAR HGB CONC 31 g/dL (33-37); MEAN CORPUSCULAR VOLUME 96 fL (80-94); PLATELET COUNT (AUTO) 211 K/uL (140-450); RED BLOOD CELL COUNT(AUTO) 4.83 MIL/uL (4.20-6.10); RED CELL DISTRIBUTION WIDTH 15.2 % (11.6-13.7); WHITE BLOOD COUNT (AUTO) 16.8 K/uL (4.8-10.8)
[2017-01-04] MEDS: BLOOD GLUCOSE MONITORING 1 DEV DEV FS SCH ×4 (06:43→20:43)
[2017-01-04 06:45] LABS: CALCIUM 9.4 mg/dL (8.5-10.1); CARBON DIOXIDE 30.7 mmol/L (21-32); CREATININE 1.2 mg/dL (0.6-1.3); POTASSIUM 4.7 mmol/L (3.5-5.1)
[2017-01-04] MEDS: INSULIN LISPRO SLIDING SCALE 100 UNITS/ML VIAL SUBQ PRN ×4 (06:58→21:05)
[2017-01-04 07:02] LABS: MAGNESIUM 2.3 mg/dL (1.8-2.4); PHOSPHORUS 4.5 mg/dL (2.5-4.9)
--- NOTE | 2017-01-04 07:20 | NUR ---
RECEIVED CARE OF PT FROM PIT LABORER NURSE AT BEDSIDE. PT IS A&OX4. PT IS ON NC 3L, O2 SAT 92%. PT HAS IV ON L AC 20 G SL. PT IS AWARE OF FLUID RESTRICTION OF 1.5L. SKIN INTACT. IN PROCESS OF R/O TB, ONE MORE SPUTUM SAMPLE AT 1400. CALL LIGHT WITHIN REACH. WILL CONTINUE TO MONITOR.
[2017-01-04 07:28] LABS: BAND % (MANUAL) 9 % (0-8); LYMPHOCYTES % (MANUAL) 4 % (20-46); MONOCYTES % (MANUAL) 8 % (5-12); NEUTROPHILS % (MANUAL) 79 (43-65)
[2017-01-04] MEDS: BUDESONIDE 0.5 MG/2 ML NEBU INH SCH ×2 (07:37→19:23)
[2017-01-04 08:00] VITALS: BP 107/70
[2017-01-04 08:03] LABS: PROTHROMBIN TIME 37.9 secs (10.8-13.4)
[2017-01-04 08:34] LABS: INR 3.8 (0.8-1.2)
--- NOTE | 2017-01-04 08:35 | NUR ---
RECEIVED CRITICAL LAB VALUES FOR INR.
--- NOTE | 2017-01-04 08:37 | NUR ---
SPOKE TO REGARDING CRITICAL VALUE OF INR.
[2017-01-04] MEDS: ATORVASTATIN 20 MG TAB PO SCH (08:39)
[2017-01-04] MEDS: methylPREDNISolone SS 40 MG/ML VIAL IVP SCH ×2 (08:39→21:08)
[2017-01-04] MEDS: metFORMIN 500 MG TAB PO SCH (08:40)
[2017-01-04] MEDS: FLUoxetine 10 MG CAP PO SCH (08:41)
[2017-01-04] MEDS: ECOTRIN 81 MG TABEC PO SCH (08:41)
[2017-01-04] MEDS: METOPROLOL SUCCINATE 50 MG TABER PO SCH (09:00)
[2017-01-04] MEDS: LISINOPRIL 20 MG TAB PO SCH (09:00)
[2017-01-04] MEDS: amLODIPine 5 MG TAB PO SCH (09:00)
[2017-01-04] MEDS: LEVOFLOXACIN 750 MG/D5W PREMIX 150 ML IV SCH (09:05)
[2017-01-04] MEDS: FUROSEMIDE 40 MG/4 ML VIAL IVP SCH ×2 (09:06→16:14)
--- NOTE | 2017-01-04 10:40 | NUR ---
SPOKE TO REGARDING PT'S DAUGHTER IZZY WHO WANTS TO CALL HER. WILL CALL.
[2017-01-04 12:00] VITALS: BP 114/67
--- NOTE | 2017-01-04 12:00 | NUR ---
PT HAS NO COMPLAINTS AT THIS TIME. VS WNL. NC 3L, 97-100% O2 SAT. PT'S HR GOES UP TO 120 AND COME BACK DOWN TO 90S. NO DISTRESS NOTED OR STATED BY PT. CALL LIGHT WITHIN REACH. WILL CONTINUE TO MONITOR.
--- NOTE | 2017-01-04 12:16 | NUR ---
Spoke to Elham regarding HHN and will check with another DME to issue the neubulizer. She stated it will not be a problem.
--- NOTE | 2017-01-04 12:30 | NUR ---
PATIENT WITH LUNCH TRAY AT THIS TIME AWAKE AND ALERT NO EVIDENCE OF SOB [facility] CODERS TO ATTEMPT HHN THERAPY AT A LATER TIME
--- NOTE | 2017-01-04 14:20 | NUR ---
PT IS SITTING IN CHAIR. NO DISTRESS NOTED. PROVIDED MORE WATER, REMINDED PT OF FLUID RESTRICTION. PT VERBALIZED UNDERSTANDING. CALL LIGHT WITHIN REACH. WILL CONTINUE TO MONITOR.
--- NOTE | 2017-01-04 14:25 | NUR ---
LAST SPUTUM SAMPLE FOR R/O TB SENT TO LAB.
--- NOTE | 2017-01-04 14:26 | NUR ---
01/04/17 RD INITIAL ASSESSMENT COMPLETED PLEASE REFER TO NUTRITION ASSESSMENT UNDER CARE ACTIVITY FOR ESTIMATED NUTRITIONAL NEEDS. 1. CONTINUE 60 G CONSISTENT CARBOHYDRATE DIET 2. RD TO FOLLOW-UP 2-3 DAYS; HIGH RISK FAMILIA LOVE RD
[2017-01-04 16:00] VITALS: BP 114/72
--- NOTE | 2017-01-04 16:10 | NUR ---
HAD TX WITH RT. NO DISTRESS NOTED. PT TOOK AFTERNOON MEDS. ADMINISTERED INSULIN PER SS. TOLERATED WELL. CALL LIGHT WITHIN REACH. WILL CONTINUE TO MONITOR.
[2017-01-04] MEDS ORDERED: metFORMIN 850 MG TAB PO SCH (17:00)
--- NOTE | 2017-01-04 17:40 | NUR ---
PT IS RESTING COMFORTABLY IN BED. CALL LIGHT WITHIN REACH. WILL CONTINUE TO MONITOR.
--- NOTE | 2017-01-04 19:24 | NUR ---
ENDORSED CARE OF PT TO REGION MANAGER NURSE. PT IN STABLE CONDITION.
--- NOTE | 2017-01-04 19:30 | NUR ---
RECEIVED REPORTS FROM DAY RN. PATIENT IS SITTING UP IN CHAIR, AIRBORNE ISOLATION. PATIENT AWAKE ALERT ORIENTED X4, NO S/S OF ACUTE DISTRESS OR DISCOMFORT NOTED, PATIENT DENIES PAIN AT THIS TIME. VITAL SIGNS TAKEN, O2 SAT 90%. PATIENT ON 02 NC 3L AND HAS HX OF COPD. ALL NEEDS ATTENDED, PLAN OF CARE DISCUSSED, VERBALIZED UNDERSTANDING. CALL LIGHT WITHIN REACH, SAFETY MEASURE ENSURED, WILL CONTINUE TO MONITOR
[2017-01-04 20:00] VITALS: BP 121/75
--- NOTE | 2017-01-04 21:15 | NUR ---
PATIENT IS SITTING UP IN BED, NO S/S OF ACUTE DISTRESS OR DISCOMFORT NOTED, PM MEDS GIVEN, TOLERATED WELL. CALL LIGHT WITHIN REACH, SAFETY MEASURE ENSURED, WILL CONTINUE TO MONITOR.
[2017-01-05] VITALS: BP 107/67
--- NOTE | 2017-01-05 | NUR ---
PATIENT ASLEEP IN BED, EASY TO AROUSE. NO S/S OF ACUTE DISTRESS NOTED, PATIENT DENIES PAIN. CALL LIGHT WITHIN REACH, SAFETY MEASURE ENSURED, WILL CONTINUE TO MONITOR.
--- NOTE | 2017-01-05 02:30 | NUR ---
PATIENT ASLEEP IN BED, RESPIRATION EVEN, NO S/S OF ACUTE DISTRESS NOTED, CALL LIGHT WITHIN REACH, SAFETY MEASURE ENSURED ,WILL CONTINUE TO MONITOR.
[2017-01-05] MEDS: ALBUTEROL SULFATE/IPRATROPIU 3 ML SOL IH SCH ×6 (03:37→23:34)
[2017-01-05 04:00] VITALS: BP 114/87
--- NOTE | 2017-01-05 04:10 | NUR ---
PT ASLEEP IN BED, EASY TO AROUSED. VITAL SIGNS STABLE. NO S/S OF ACUTE DISTRESS NOTED, CALL LIGHT WITHIN REACH, WILL CONTINUE TO MONITOR
[2017-01-05 05:57] LABS: BASOPHILS # (AUTO) 0.1 K/uL (0.00-0.22); BASOPHILS % (AUTO) 0.9 % (0.0-2.0); EOSINOPHILS # (AUTO) 0.2 K/uL (0-0.4); EOSINOPHILS % (AUTO) 1.5 % (0.0-4.0); HEMATOCRIT 46.1 % (36-52); HEMOGLOBIN 14.4 g/dL (12.0-18.0); LYMPHOCYTES % (AUTO) 7.1 % (20.5-51.1); MEAN CORPUSCULAR HEMOGLOBIN 30 pg (27-31); MEAN CORPUSCULAR HGB CONC 31 g/dL (33-37); MEAN CORPUSCULAR VOLUME 96 fL (80-94); MONOCYTES # (AUTO) 0.3 K/uL (0.8-1.0); MONOCYTES % (AUTO) 2.4 % (1.7-9.3); NEUTROPHILS # (AUTO) 12.3 K/uL (1.8-7.7); NEUTROPHILS % (AUTO) 88.1 % (42.2-75.2); PLATELET COUNT (AUTO) 227 K/uL (140-450); RED BLOOD CELL COUNT(AUTO) 4.82 MIL/uL (4.20-6.10)
[2017-01-05 06:26] LABS: INR 2.8 (0.8-1.2)
[2017-01-05 06:29] LABS: ANION GAP 14.5 (8-16); CALCIUM 9.3 mg/dL (8.5-10.1); CARBON DIOXIDE 31.2 mmol/L (21-32); CREATININE 1.3 mg/dL (0.6-1.3); POTASSIUM 4.7 mmol/L (3.5-5.1)
[2017-01-05] MEDS: NACL 0.9% 1,000 ML IV SCH (06:35)
[2017-01-05 06:36] LABS: MAGNESIUM 2.1 mg/dL (1.8-2.4); PHOSPHORUS 5.3 mg/dL (2.5-4.9)
--- NOTE | 2017-01-05 06:50 | NUR ---
PATIENT RESTING IN BED, NO S/S OF ACUTE DISTRESS NOTED, CALL LIGHT WITHIN REACH, WILL CONTINUE TO MONITOR
[2017-01-05 06:57] LABS: WHITE BLOOD COUNT (AUTO) 13.9 K/uL (4.8-10.8)
[2017-01-05] MEDS: BLOOD GLUCOSE MONITORING 1 DEV DEV FS SCH ×4 (07:00→21:47)
[2017-01-05] MEDS: INSULIN LISPRO SLIDING SCALE 100 UNITS/ML VIAL SUBQ PRN ×4 (07:02→21:48)
[2017-01-05] MEDS: BUDESONIDE 0.5 MG/2 ML NEBU INH SCH ×2 (07:08→19:35)
--- NOTE | 2017-01-05 07:10 | NUR ---
ENDORSED PLAN OF CARE TO DAY RN. PATIENT IS IN STABLE CONDITION
--- NOTE | 2017-01-05 07:12 | NUR ---
RECEIVED REPORT FROM NIGHT RN. PT RESTING IN BED. AAOX4. NO S/S OF ACUTE DISTRESS. PT DENIES PAIN. ON O2 3L NC. IV SITE PATENT AND INTACT. CALL LIGHT WITHIN REACH. SAFETY MEASURES ENSURED. WILL CONTINUE TO MONITOR.
[2017-01-05] MEDS ORDERED: metFORMIN 500 MG TAB PO SCH ×2 (08:07→08:09)
[2017-01-05] MEDS: ATORVASTATIN 20 MG TAB PO SCH (08:28)
[2017-01-05] MEDS: ECOTRIN 81 MG TABEC PO SCH (08:28)
[2017-01-05] MEDS: amLODIPine 5 MG TAB PO SCH (08:28)
[2017-01-05] MEDS: FLUoxetine 10 MG CAP PO SCH (08:28)
[2017-01-05] MEDS: FUROSEMIDE 40 MG/4 ML VIAL IVP SCH ×2 (08:29→17:17)
[2017-01-05] MEDS: METOPROLOL SUCCINATE 50 MG TABER PO SCH (08:29)
[2017-01-05] MEDS: methylPREDNISolone SS 40 MG/ML VIAL IVP SCH (08:29)
[2017-01-05] MEDS: LISINOPRIL 20 MG TAB PO SCH (08:29)
--- NOTE | 2017-01-05 08:29 | NUR ---
AM MEDICATIONS GIVEN WITH EDUCATION. PT VERBALIZED UNDERSTANDING. PT TOLERATED WELL. NO S/S OF ACUTE DISTRESS. WILL CONTINUE TO MONITOR.
[2017-01-05 09:00] VITALS: BP 119/63
[2017-01-05] MEDS: LEVOFLOXACIN 750 MG/D5W PREMIX 150 ML IV SCH (10:02)
--- NOTE | 2017-01-05 10:39 | NUR ---
NASAL CANNULA TITRATED TO 2L TO KEEP SPO2 >90%. SPO2 92% AT THIS TIME WILL CONTINUE TO MONITOR.
--- NOTE | 2017-01-05 10:47 | NUR ---
FAXED CONCURRENT REVIEW TO [facility] [phone] PHONE RACHEL [phone]
[2017-01-05 12:00] VITALS: BP 115/62
--- NOTE | 2017-01-05 13:27 | NUR ---
PT RESTING IN CHAIR AT BEDSIDE. NO S/S OF ACUTE DISTRESS. PT DENIES PAIN. WILL CONTINUE TO MONITOR.
--- NOTE | 2017-01-05 15:19 | NUR ---
PT'S NEBULIZER AT BEDSIDE.
[2017-01-05 16:00] VITALS: BP 114/82
[2017-01-05] MEDS ORDERED: glipiZIDE 5 MG TAB PO SCH (16:30)
[2017-01-05] MEDS: metFORMIN 500 MG TAB PO SCH (17:16)
--- NOTE | 2017-01-05 19:20 | NUR ---
ENDORSED PLAN OF CARE TO NIGHT RN. PT REMAINS STABLE.
--- NOTE | 2017-01-05 19:30 | NUR ---
RECEIVED FROM AM RN IN BED SITTING UP. ROM X 4. CLEAR SPEECH. ORIENTED X 4. AFEBRILE. DX. OF COPD, PNA AND HYPOXIA. ON ISOLATION RESPIRATORY RT R/O TUBERCULOSIS. CARE PLANS FOR THE NIGHT DISCUSSED WITH HIM AND CALL LIGHT WITH IN REACH . RFA#20 IVF SITE INTACT AND NO INFILTRATION NOTED.
[2017-01-06] VITALS: BP 110/68
--- NOTE | 2017-01-06 | NUR ---
SLEEPING. ISOLATION PRECAUTION IMPLEMENTED. CALL LIGHT WITH IN REACH AND ABLE TO USE IT WELL. A/O X 4. ROM X 4.
[2017-01-06] MEDS: ALBUTEROL SULFATE/IPRATROPIU 3 ML SOL IH SCH ×6 (03:05→23:50)
--- NOTE | 2017-01-06 04:10 | NUR ---
SLEEPING WELL. NO RESTLESSNESS NOTED.
[2017-01-06] MEDS: BLOOD GLUCOSE MONITORING 1 DEV DEV FS SCH ×4 (05:34→21:56)
[2017-01-06] MEDS: NACL 0.9% 1,000 ML IV SCH (05:35)
[2017-01-06] MEDS: INSULIN LISPRO SLIDING SCALE 100 UNITS/ML VIAL SUBQ PRN ×3 (05:38→21:57)
--- NOTE | 2017-01-06 06:35 | NUR ---
AWAKE AND ALERT. NO COMPLAINTS DONE. NO NOTED HYPO/HYPERGLYCEMIA NOTED. SLEPT WELL THIS SHIFT. PT. STILL COUGHING INTERMITTENTLY. WITH BREATHING TREATMENTS ORDERED.
[2017-01-06 07:09] LABS: HEMATOCRIT 46.4 % (36-52); HEMOGLOBIN 15.5 g/dL (12.0-18.0); MEAN CORPUSCULAR HEMOGLOBIN 31 pg (27-31); MEAN CORPUSCULAR HGB CONC 33 g/dL (33-37); MEAN CORPUSCULAR VOLUME 94 fL (80-94); PLATELET COUNT (AUTO) 252 K/uL (140-450); RED BLOOD CELL COUNT(AUTO) 4.95 MIL/uL (4.20-6.10); RED CELL DISTRIBUTION WIDTH 14.7 % (11.6-13.7); WHITE BLOOD COUNT (AUTO) 14.4 K/uL (4.8-10.8)
--- NOTE | 2017-01-06 07:10 | NUR ---
RECEIVED CHRISTI FROM NIGHT RN FOR CONTINUITY OF CARE. PATIENT IS ALERT AND ORIENTED TO PERSON, PLACE, DATE AND TIME. SKIN WARM TO TOUCH WNL. NO EDEMA. ON 02 PER NASAL CANNULA AT 2LPM. URINE AND BOWEL CONTINENT, ABLE TO AMBULATE TO THE RESTROOM CLAIMED. ABLE TO MAKE HIS NEEDS KNOWN. CALL LIGHT WITHIN REACH. WILL MONITOR PATIENT.
[2017-01-06 07:26] LABS: ANION GAP 13.4 (8-16); CALCIUM 9.7 mg/dL (8.5-10.1); CARBON DIOXIDE 33.5 mmol/L (21-32); CREATININE 1.2 mg/dL (0.6-1.3); POTASSIUM 3.9 mmol/L (3.5-5.1)
[2017-01-06 07:34] LABS: MAGNESIUM 2.3 mg/dL (1.8-2.4); PHOSPHORUS 4.3 mg/dL (2.5-4.9)
[2017-01-06] MEDS: BUDESONIDE 0.5 MG/2 ML NEBU INH SCH ×2 (07:34→19:30)
[2017-01-06 07:47] LABS: BAND % (MANUAL) 4 % (0-8); LYMPHOCYTES % (MANUAL) 19 % (20-46); METAMYELOCYTES % 1 % (0-0); MONOCYTES % (MANUAL) 4 % (5-12); NEUTROPHILS % (MANUAL) 72 (43-65)
[2017-01-06 08:02] VITALS: BP 110/75
[2017-01-06] MEDS: ECOTRIN 81 MG TABEC PO SCH (08:55)
[2017-01-06] MEDS: ATORVASTATIN 20 MG TAB PO SCH (08:55)
[2017-01-06] MEDS: FLUoxetine 10 MG CAP PO SCH (08:55)
[2017-01-06] MEDS: metFORMIN 500 MG TAB PO SCH ×2 (08:55→16:45)
--- NOTE | 2017-01-06 08:55 | NUR ---
AM MEDICATIONS GIVEN WITH EDUCATION. PT VERBALIZED UNDERSTANDING. PT TOLERATED WELL. WILL CONTINUE TO MONITOR.
[2017-01-06] MEDS: METOPROLOL SUCCINATE 50 MG TABER PO SCH (08:56)
[2017-01-06] MEDS: FUROSEMIDE 40 MG/4 ML VIAL IVP SCH ×2 (08:56→16:45)
[2017-01-06] MEDS: amLODIPine 5 MG TAB PO SCH (08:56)
[2017-01-06] MEDS: LISINOPRIL 20 MG TAB PO SCH (08:56)
[2017-01-06] MEDS: LEVOFLOXACIN 750 MG/D5W PREMIX 150 ML IV SCH (09:02)
--- NOTE | 2017-01-06 15:08 | NUR ---
01/06/17 RD FOLLOW UP COMPLETED PLEASE REFER TO NUTRITION PROGRESS NOTE UNDER CARE ACTIVITY FOR ESTIMATED NUTRITION NEEDS. RD RECOMMENDATIONS: 1.CONTINUE CCHO 60 GM DIET MEDICALLY APPROPRIATE. --NOTE PT IS MEETING ~52% OF PT ESTIMATED KCAL NEEDS AND ~72% OF ESTIMATED PROTEIN NEEDS WITH A ~58% AVG PO INTAKE (FAIR). 2. RD WILL F/U 3-5 DAYS; MODERATE RISK. SVEN GOMEZ, RD
--- NOTE | 2017-01-06 15:16 | NUR ---
PATIENT IS AWAKE, WATCHING TV. NO COMPLAINTS MADE AT THIS TIME. WILL CONTINUE TO MONITOR PATIENT.
[2017-01-06 16:00] VITALS: BP 140/65
--- NOTE | 2017-01-06 19:20 | NUR ---
REPORT GIVEN TO NOC RN FOR CONTINUITY OF CARE. PATIENT IN STABLE CONDITION.
--- NOTE | 2017-01-06 19:30 | NUR ---
RECEIVED REPORT FROM AM NURSE. PT SITTING AT BEDSIDE, AOX4, ABLE TO VERBALIZE NEEDS. PT DENIES CHEST PAIN, SOB OR S/S OF ACUTE DISTRESS. PT STATES "I FEEL GOOD." SPO2 88% AT ROOM AIR. PT REPORTED THAT HE JUST RECEIVED BREATHING TREATMENT FEW MINUTES AGO, CONDITION STABLE. IV ACCESS ASYMPTOMATIC, PATENT AND INTACT. SALINE LOCKED. DISCUSSED AND REVIEWED PLAN OF CARE WITH PT. PT INSTRUCTED TO RESTRICT FLUIDS 1.5L PER DAY. [place]NE PRECAUTIONS AND SAFETY PRECAUTIONS ENSURED. CALL LIGHT WITHIN REACH. WILL CONTINUE TO MONITOR.
[2017-01-06 20:00] VITALS: BP 107/58
--- NOTE | 2017-01-06 21:59 | NUR ---
BLOOD SUGAR 208, ADMINISTERED INSULIN COVERAGE ORDERED. PT TOLERATED WELL. PT SLEEPING COMFORTABLY. CONDITION STABLE. SAFETY MEASURES ENSURED. CALL LIGHT WITHIN REACH. WILL CONTINUE TO MONITOR.
[2017-01-07] VITALS: BP 111/62
--- NOTE | 2017-01-07 | NUR ---
PT SLEEPING COMFORTABLY. CONDITION STABLE, SPO2 92% AT ROOM AIR, RR 20. SAFETY MEASURES ENSURED. CALL LIGHT WITHIN REACH. WILL CONTINUE TO MONITOR.
[2017-01-07] MEDS: ALBUTEROL SULFATE/IPRATROPIU 3 ML SOL IH SCH ×6 (03:50→22:23)
--- NOTE | 2017-01-07 04:35 | NUR ---
PT SLEEPING. ALL NEEDS MET. CONDITION STABLE. SAFETY MEASURES ENSURED. CALL LIGHT WITHIN REACH. WILL CONTINUE TO MONITOR.
[2017-01-07] MEDS: NACL 0.9% 1,000 ML IV SCH (06:20)
[2017-01-07] MEDS: BLOOD GLUCOSE MONITORING 1 DEV DEV FS SCH ×4 (06:21→21:34)
[2017-01-07] MEDS: INSULIN LISPRO SLIDING SCALE 100 UNITS/ML VIAL SUBQ PRN ×4 (06:40→21:43)
[2017-01-07] MEDS: BUDESONIDE 0.5 MG/2 ML NEBU INH SCH ×2 (06:41→19:07)
[2017-01-07 07:26] LABS: BASOPHILS # (AUTO) 0.1 K/uL (0.00-0.22); BASOPHILS % (AUTO) 1.1 % (0.0-2.0); EOSINOPHILS # (AUTO) 0.1 K/uL (0-0.4); EOSINOPHILS % (AUTO) 0.9 % (0.0-4.0); HEMATOCRIT 49.9 % (36-52); LYMPHOCYTES # (AUTO) 1.3 K/uL (2.0-11.5); LYMPHOCYTES % (AUTO) 11.5 % (20.5-51.1); MEAN CORPUSCULAR HEMOGLOBIN 31 pg (27-31); MEAN CORPUSCULAR HGB CONC 32 g/dL (33-37); MEAN CORPUSCULAR VOLUME 97 fL (80-94); MONOCYTES # (AUTO) 0.8 K/uL (0.8-1.0); MONOCYTES % (AUTO) 6.9 % (1.7-9.3); NEUTROPHILS # (AUTO) 9.3 K/uL (1.8-7.7); NEUTROPHILS % (AUTO) 79.6 % (42.2-75.2); PLATELET COUNT (AUTO) 266 K/uL (140-450); RED BLOOD CELL COUNT(AUTO) 5.17 MIL/uL (4.20-6.10); RED CELL DISTRIBUTION WIDTH 14.9 % (11.6-13.7); WHITE BLOOD COUNT (AUTO) 11.6 K/uL (4.8-10.8)
--- NOTE | 2017-01-07 07:27 | NUR ---
ENDORSED PLAN OF CARE TO AM NURSE. CONDITION STABLE.
--- NOTE | 2017-01-07 07:28 | NUR ---
RECEIVED REPORT OF PT FROM ORNAMENT MAKER HAND NURSE AT BEDSIDE. REINTRODUCED MYSELF AND UPDATED THE BOARD. PT IS ON ROOM AIR, O2 87% WHEN LYING DOWN, WHEN SITTING UP 92-95%. PT HAS IV ON L AC 20 G RUNNING NS @ 10. PT IS AWARE OF FLUID RESTRICTION OF 1.5L PER DAY. WILL UPDATE PT ON PLAN OF CARE. CALL LIGHT WITHIN REACH. WILL CONTINUE TO MONITOR.
[2017-01-07 07:32] LABS: ANION GAP 14.2 (8-16); CALCIUM 9.6 mg/dL (8.5-10.1); CARBON DIOXIDE 33.8 mmol/L (21-32); CREATININE 1.3 mg/dL (0.6-1.3)
[2017-01-07 08:00] VITALS: BP 105/73
[2017-01-07] MEDS: metFORMIN 500 MG TAB PO SCH ×2 (08:27→17:03)
[2017-01-07] MEDS: ATORVASTATIN 20 MG TAB PO SCH (08:27)
[2017-01-07] MEDS: FUROSEMIDE 40 MG/4 ML VIAL IVP SCH ×2 (08:28→17:03)
[2017-01-07] MEDS: ECOTRIN 81 MG TABEC PO SCH (08:28)
[2017-01-07] MEDS: FLUoxetine 10 MG CAP PO SCH (08:28)
[2017-01-07] MEDS: LISINOPRIL 20 MG TAB PO SCH (09:00)
[2017-01-07] MEDS: METOPROLOL SUCCINATE 50 MG TABER PO SCH (09:00)
[2017-01-07] MEDS: amLODIPine 5 MG TAB PO SCH (09:00)
--- NOTE | 2017-01-07 09:00 | NUR ---
TOLERATED MORNING MEDS WELL. NO OTHER COMPLAINTS AT THIS TIME. WILL CONTINUE TO MONITOR.
[2017-01-07] MEDS: LEVOFLOXACIN 750 MG/D5W PREMIX 150 ML IV SCH (09:24)
--- NOTE | 2017-01-07 11:00 | NUR ---
PT C/O ROOM TEMP IS TOO HOT. PAGED ENGINEERING.
--- NOTE | 2017-01-07 11:30 | NUR ---
PT IS RESTING COMFORTABLY IN BED. CALL LIGHT WITHIN REACH. WILL CONTINUE TO MONITOR.
--- NOTE | 2017-01-07 12:30 | NUR ---
PT SAT AT EDGE OF BED TO EAT LUNCH. CALL LIGHT WITHIN REACH. WILL CONTINUE TO MONITOR.
--- NOTE | 2017-01-07 14:02 | NUR ---
PT IS RESTING COMFORTABLY IN BED. NO DISTRESS NOTED. CALL LIGHT WITHIN REACH. WILL CONTINUE TO MONITOR.
[2017-01-07 16:00] VITALS: BP 107/75
--- NOTE | 2017-01-07 16:00 | NUR ---
PT IS RESTING COMFORTABLY IN CHAIR. NO COMPLAINTS AT THIS TIME. CALL LIGHT WITHIN REACH. WILL CONTINUE TO MONITOR.
--- NOTE | 2017-01-07 17:30 | NUR ---
STARTED NEW IV DUE TO OLD IV MORE THAN 3 DAYS. PT TOLERATED WELL. IV ON R FOREARM 20 G SALINE FLUSHED. CALL LIGHT WITHIN REACH. WILL CONTINUE TO MONITOR.
--- NOTE | 2017-01-07 19:25 | NUR ---
ENDORSED CARE OF PT TO ELECTRICIAN UNDERGROUND NURSE. PT IN STABLE CONDITION.
--- NOTE | 2017-01-07 19:25 | NUR ---
PATIENT WALKING IN ROOM RESTING IN BED DENIES PAIN ABLE TO MAKE NEEDS KNOWN.WILL CONTINUE TO MONITOR.
[2017-01-07 20:00] VITALS: BP 114/66
--- NOTE | 2017-01-07 21:00 | NUR ---
Patient's Plan of Care was discussed and reviewed with ASPHALT RAKER: ENRIQUE BECKWITH
--- NOTE | 2017-01-07 21:34 | NUR ---
ACCUCHECK DONE PATIENT DOING WELL NO PAIN CURRENTLY WATCHING TV.CALL LIGHT WITHIN REACH.
--- NOTE | 2017-01-07 22:35 | NUR ---
PATIENT IS CURRENTLY RESTING IN BED I WAS ABLE TO GET HIM A DIET COKE FROM NURSING FLATWORK FOLDER.PATIENT DOING WELL NO COMPLAINS OF PAIN.WILL CONTINUE TO MONITOR.
[2017-01-08] VITALS: BP 111/66
--- NOTE | 2017-01-08 00:05 | NUR ---
PATIENT IS CURRENTLY RESTING IN BED DENIES ANY SOB OR PAIN.NEEDS MET WILL CONTINUE TO MONITOR. PATIENT ABLE TO MAKE NEEDS KNOWN.
[2017-01-08] MEDS: ALBUTEROL SULFATE/IPRATROPIU 3 ML SOL IH SCH ×4 (03:03→14:51)
--- NOTE | 2017-01-08 03:06 | NUR ---
PATIENT RESTING IN BED AWAKE RESP THERAPIST WITH THE PATIENT AT THIS TIME I BROUGHT A DIET SODA PATIENT REQUESTED.PATIENT DOING WELL AT THIS TIME.WILL CONTINUE TO MONITOR.
--- NOTE | 2017-01-08 04:05 | NUR ---
PATIENT CURRENTLY SLEEPING IN BED IN NO DISTRESS NO PAIN OR DISCOMFORT NOTED.CALL LIGHT WITHIN REACH.
--- NOTE | 2017-01-08 06:15 | NUR ---
PATIENT IS CURRENTLY STABLE RESTING IN BED NO COMPLAINS OF CHEST PAIN OR SOB NOTED PATIENT NEEDS MET PATIENT SMILING.
[2017-01-08 06:23] LABS: BASOPHILS # (AUTO) 0.1 K/uL (0.00-0.22); BASOPHILS % (AUTO) 0.8 % (0.0-2.0); EOSINOPHILS # (AUTO) 0.1 K/uL (0-0.4); HEMATOCRIT 51.4 % (36-52); HEMOGLOBIN 16.6 g/dL (12.0-18.0); LYMPHOCYTES # (AUTO) 0.8 K/uL (2.0-11.5); LYMPHOCYTES % (AUTO) 6.8 % (20.5-51.1); MEAN CORPUSCULAR HEMOGLOBIN 31 pg (27-31); MEAN CORPUSCULAR HGB CONC 32 g/dL (33-37); MEAN CORPUSCULAR VOLUME 95 fL (80-94); MONOCYTES # (AUTO) 0.9 K/uL (0.8-1.0); MONOCYTES % (AUTO) 7.6 % (1.7-9.3); NEUTROPHILS # (AUTO) 9.7 K/uL (1.8-7.7); NEUTROPHILS % (AUTO) 83.8 % (42.2-75.2); PLATELET COUNT (AUTO) 246 K/uL (140-450); RED BLOOD CELL COUNT(AUTO) 5.44 MIL/uL (4.20-6.10); RED CELL DISTRIBUTION WIDTH 14.3 % (11.6-13.7)
[2017-01-08] MEDS: NACL 0.9% 1,000 ML IV SCH (06:35)
[2017-01-08 06:40] LABS: ANION GAP 13.9 (8-16); CALCIUM 9.6 mg/dL (8.5-10.1); CARBON DIOXIDE 33.2 mmol/L (21-32); CREATININE 1.4 mg/dL (0.6-1.3); POTASSIUM 4.1 mmol/L (3.5-5.1)
[2017-01-08] MEDS: BLOOD GLUCOSE MONITORING 1 DEV DEV FS SCH ×2 (06:49→11:32)
[2017-01-08] MEDS: BUDESONIDE 0.5 MG/2 ML NEBU INH SCH (07:13)
--- NOTE | 2017-01-08 07:30 | NUR ---
PATIENT STABLE RESPIRATORY THERAPIST IN ROOM WITH THE PATIENT.REPORT ENDORSED AT BEDSIDE TO RN SUN SHE WILL RESUME CARE.
--- NOTE | 2017-01-08 07:31 | NUR ---
RECEIVED REPORT OF PT FROM BUSINESS PROCESS ARCHITECT NURSE AT BEDSIDE. INTRODUCED MYSELF AND UPDATED THE BOARD. PT IS ALERT AWAKE AND ORIENTED. ON RA, 92% OXYGEN SAT. PT HAS NO COMPLAINTS AT THIS TIME. PT HAS IV ON R F/A 20 G RUNNING NS@10ML/HR. CALL LIGHT WITHIN REACH. WILL CONTINUE TO MONITOR.
[2017-01-08 07:55] LABS: WHITE BLOOD COUNT (AUTO) 11.6 K/uL (4.8-10.8)
[2017-01-08 08:00] VITALS: BP 126/63
[2017-01-08] MEDS: metFORMIN 500 MG TAB PO SCH (08:57)
[2017-01-08] MEDS: LISINOPRIL 20 MG TAB PO SCH (08:57)
[2017-01-08] MEDS: FUROSEMIDE 40 MG/4 ML VIAL IVP SCH (08:57)
[2017-01-08] MEDS: ATORVASTATIN 20 MG TAB PO SCH (08:57)
[2017-01-08] MEDS: FLUoxetine 10 MG CAP PO SCH (08:57)
[2017-01-08] MEDS: ECOTRIN 81 MG TABEC PO SCH (08:58)
[2017-01-08] MEDS: METOPROLOL SUCCINATE 50 MG TABER PO SCH (09:00)
[2017-01-08] MEDS: amLODIPine 5 MG TAB PO SCH (09:00)
--- NOTE | 2017-01-08 09:40 | NUR ---
PT TOLERATED MORNING MEDS WELL. WILL UPDATE PT ON PLAN FOR DISCHARGE. CALL LIGHT WITHIN REACH. WILL CONTINUE TO MONITOR.
[2017-01-08] MEDS: LEVOFLOXACIN 750 MG/D5W PREMIX 150 ML IV SCH (10:00)
--- NOTE | 2017-01-08 11:30 | NUR ---
TOOK BS. ADMINISTERED INSULIN. PT TOLERATED WELL. CALL LIGHT WITHIN REACH. WILL CONTINUE TO MONITOR.
[2017-01-08] MEDS: INSULIN LISPRO SLIDING SCALE 100 UNITS/ML VIAL SUBQ PRN (11:34)
[2017-01-08] MEDS ORDERED: FURO-570 PO (13:00)
[2017-01-08] MEDS ORDERED: METF500T4 PO (13:29)
[2017-01-08] MEDS ORDERED: LEVO500T22 PO (13:29)
[2017-01-08] MEDS ORDERED: METO50TE2 PO (13:29)
[2017-01-08] MEDS ORDERED: LACT1.4C PO (13:30)
--- NOTE | 2017-01-08 13:30 | NUR ---
PT PROVIDED PREFERRED PHARMACY AND PCP FOR DOCTOR. NO COMPLAINTS AT THIS TIME. CALL LIGHT WITHIN REACH. WILL CONTINUE TO MONITOR.
--- NOTE | 2017-01-08 14:51 | NUR ---
AWAKE AND ALERT PATIENT REFUSING [facility] THERAPY BEING DISCHARGED AT THIS TIME NO PULMONARY DISTRESS NOTED AT THIS TIME
--- NOTE | 2017-01-08 15:10 | NUR ---
WENT OVER PAPERWORK WITH PT AND DAUGHTER. BOTH VERBALIZED UNDERSTANDING. IV REMOVED CANNULA INTACT. ID BANDS REMOVED. PT IS TO GET DRESSED.
--- NOTE | 2017-01-08 15:10 | NUR ---
FAXED CONCURRENT REVVIEW TO [facility] [phone] PHONE RACHEL [phone]
--- NOTE | 2017-01-08 15:15 | NUR ---
WHEELED PT OUT OF HOSPITAL. PT TOOK ALL BELONGINGS AND THE HANDHELD NEBULIZER. PT IN STABLE CONDITION.
== END 2017-01-08 15:15 | disposition home or self-care (01) | DRG 137 ==
LOC: MED 11:56 → MTU 14:19
PROVIDERS: ADMIT Family Medicine; ATTEND Family Medicine
DX: J69.0 Pneumonitis due to inhalation of food and vomit (principal); I21.4 Non-ST elevation (NSTEMI) myocardial infarction; J96.21 Acute and chronic respiratory failure with hypoxia; N17.0 Acute kidney failure with tubular necrosis; D68.59 Other primary thrombophilia; I42.0 Dilated cardiomyopathy; I31.3 Pericardial effusion (noninflammatory); E11.22 Type 2 diabetes mellitus with diabetic chronic kidney disease; E78.5 Hyperlipidemia, unspecified; E11.65 Type 2 diabetes mellitus with hyperglycemia; I27.2 Other secondary pulmonary hypertension; M86.8X7 Other osteomyelitis, ankle and foot; I48.2 Chronic atrial fibrillation; I25.10 Atherosclerotic heart disease of native coronary artery without angina pectoris; I08.3 Combined rheumatic disorders of mitral, aortic and tricuspid valves; I70.0 Atherosclerosis of aorta; N18.9 Chronic kidney disease, unspecified; I13.10 Hypertensive heart and chronic kidney disease without heart failure, with stage 1 through stage 4 chronic kidney disease, or unspecified chronic kidney disease; E11.69 Type 2 diabetes mellitus with other specified complication; E66.9 Obesity, unspecified; J44.1 Chronic obstructive pulmonary disease with (acute) exacerbation; I48.92 Unspecified atrial flutter; J44.0 Chronic obstructive pulmonary disease with (acute) lower respiratory infection; J20.9 Acute bronchitis, unspecified; T38.0X5A Adverse effect of glucocorticoids and synthetic analogues, initial encounter; D72.829 Elevated white blood cell count, unspecified; R59.0 Localized enlarged lymph nodes; Z87.891 Personal history of nicotine dependence; Z85.46 Personal history of malignant neoplasm of prostate; Z95.1 Presence of aortocoronary bypass graft; Z68.35 Body mass index [BMI] 35.0-35.9, adult; Z79.82 Long term (current) use of aspirin; Z79.899 Other long term (current) drug therapy; Z90.79 Acquired absence of other genital organ(s); Y92.89 Other specified places as the place of occurrence of the external cause; Z79.01 Long term (current) use of anticoagulants; Z79.84 Long term (current) use of oral hypoglycemic drugs
CPT/HCPCS: 36415; 36600; 71010; 71250; 76604; 76705; 80048; 80053; 80305; 81001; 82553; 82803; 82948; 83036; 83735; 83880; 84100; 84484; 85025; 85610; 85730; 87040; 87070; 87081; 87116; 87186; 87190; 87205; 87206; 93005; 93925; 93970; 94640; 96365; 96366; 99285; J1815; J1940; J1956; J2543; J2920; J2930; J3475; J3490; J7030; J7060; J7613; J7620; J7626; J7644; Q0092